=== PATIENT | male | born 1990 | race African-American/Black ===

== ENCOUNTER 2025-03-19 13:52 | Emergency (ER) | payer SELFPAY ==
[~2025-03-19] VITALS: Ht 170.2 cm; Wt 68.0 kg
[2025-03-19 14:02] VITALS: O2SAT 100
[2025-03-19] MEDS: KETOROLAC 30MG/ML VIAL IV ONE (14:34)
[2025-03-19 15:50] LABS: BASOPHILS % 0.5 % (0.0-2.0); EOSINOPHILS % 1.2 % (0.0-5.0); HEMATOCRIT. 40.0 % (42.0-52.0); HEMOGLOBIN. 12.8 g/dL (14.0-18.0); LYMPHOCYTES % 31.4 % (20.0-50.0); MEAN PLATELET VOLUME 9.3 fl (7.4-10.4); MONOCYTES % 14.6 % (2.0-8.0); NEUTROPHILS % 52.3 % (40.0-76.0); PLATELET 172 x1000/uL (130-400); RED BLOOD CELL COUNT 5.69 mill/uL (4.7-6.1); RED CELL DISTRIBUTION WIDTH 15.1 % (11.6-14.6)
[2025-03-19] MEDS: SODIUM CHLORIDE 0.9% 1,000 ML IV ONE (15:55)
[2025-03-19] MEDS: ONDANSETRON HCL 4MG/2ML INJ IV ONE (15:55)
[2025-03-19 16:03] LABS: CREATININE 1.1 mg/dL (0.6-1.3); ETHANOL BLOOD < 10 mg/dL (<10); TROPONIN I HIGH SENSITIVITY < 4 ng/L (3.0-53); UREA NITROGEN BLOOD 14 mg/dL (9-23)
[2025-03-19 16:05] LABS: ASPARTATE AMINOTRANSFERASE 13 IU/L (<34); BILIRUBIN DIRECT 0.1 mg/dL (<=3.0); BILIRUBIN TOTAL 0.5 mg/dL (0.1-1.0); PROTEIN TOTAL 6.5 g/dL (6.0-8.3)
[2025-03-19] MEDS: ACETAMINOPHEN 500MG TABLET PO ONE (16:12)
[2025-03-19 19:03] VITALS: BP 104/69; PULSE 68; RESP 14; TEMP 36.2; O2SAT 100
== END 2025-03-19 19:04 | disposition home or self-care (01) ==
LOC: ER 13:52
DX: K52.9 Noninfective gastroenteritis and colitis, unspecified (principal); I10 Essential (primary) hypertension
CPT/HCPCS: 80076; 80048; 80320; 83690; 85025; 84484; 36415; 74176; 96361; 96374; 96375; 99285; J1885; J2405; J7030; G0480

== ENCOUNTER 2025-05-22 19:35 | Emergency (ER) | payer SELFPAY ==
[~2025-05-22] VITALS: Ht 172.7 cm; Wt 69.4 kg
[2025-05-22 19:37] VITALS: TEMP 36.7; O2SAT 99
[2025-05-22 20:50] LABS: BASOPHILS % 0.4 % (0.0-2.0); EOSINOPHILS % 2.4 % (0.0-5.0); HEMATOCRIT. 45.9 % (42.0-52.0); HEMOGLOBIN. 14.8 g/dL (14.0-18.0); LYMPHOCYTES % 37.8 % (20.0-50.0); MEAN PLATELET VOLUME 9.2 fl (7.4-10.4); MONOCYTES % 11.3 % (2.0-8.0); NEUTROPHILS % 48.1 % (40.0-76.0); PLATELET 213 x1000/uL (130-400); RED BLOOD CELL COUNT 6.52 mill/uL (4.7-6.1); RED CELL DISTRIBUTION WIDTH 14.5 % (11.6-14.6)
[2025-05-22] MEDS: FAMOTIDINE 20MG TABLET PO ONE (20:52)
[2025-05-22] MEDS: ONDANSETRON 4MG ODT PO ONE (20:52)
[2025-05-22] MEDS: BISMUTH SUBSALICYLATE 262 MG/15 ML-120ML BOTTLE PO ONE (20:58)
[2025-05-22 21:09] LABS: CREATININE 1.3 mg/dL (0.6-1.3); UREA NITROGEN BLOOD 11 mg/dL (9-23)
[2025-05-22 21:11] LABS: TROPONIN I HIGH SENSITIVITY < 4 ng/L (3.0-53)
[2025-05-22 21:12] LABS: ASPARTATE AMINOTRANSFERASE 22 IU/L (<34); BILIRUBIN DIRECT 0.1 mg/dL (<=3.0); BILIRUBIN TOTAL 0.3 mg/dL (0.1-1.0); PROTEIN TOTAL 7.0 g/dL (6.0-8.3)
[2025-05-22] MEDS: METOCLOPRAMIDE HCL 10MG/2ML VIAL IM ONE (22:15)
[2025-05-22] MEDS: KETOROLAC 30MG/ML VIAL IM ONE (22:48)
[2025-05-22] MEDS: DICYCLOMINE HCL 10MG/ML 2ML VIAL IM ONE (22:49)
[2025-05-22 23:47] VITALS: BP 110/81; PULSE 76; RESP 14; O2SAT 100
== END 2025-05-23 00:07 | disposition home or self-care (01) ==
LOC: ER 19:35
DX: K52.9 Noninfective gastroenteritis and colitis, unspecified (principal); I10 Essential (primary) hypertension
CPT/HCPCS: 99284; 80076; 80048; 83690; 85025; 84484; 36415; 96372; J1885; Q0162; J0500; J2765

== ENCOUNTER 2025-06-02 18:12 | Emergency (ER) | payer SELFPAY ==
[~2025-06-02] VITALS: Ht 180.3 cm; Wt 73.0 kg
[2025-06-02 18:20] VITALS: BP 150/86; PULSE 82; RESP 15; TEMP 36.6; O2SAT 100
== END 2025-06-02 20:51 | disposition left against medical advice (07) ==
LOC: ER 18:12
DX: R10.9 Unspecified abdominal pain (principal); Z53.21 Procedure and treatment not carried out due to patient leaving prior to being seen by health care provider
CPT/HCPCS: 99281